=== PATIENT | female | born 1980 | race Caucasian/White ===

== ENCOUNTER 2018-12-26 16:18 | Emergency (ER) | payer OTHER ==
[~2018-12-26] VITALS: Ht 157.5 cm; Wt 49.9 kg
--- OUTSIDE RECORDS SUMMARY | 2018-12-26 16:28 | XMS REPORT | Continuity of Care Document ---
Author Organization Unknown Address Unknown Allergies There is no data. Medications There is no data. Problems There is no data. Procedures There is no data. Results Test Result Range FSH, SERUM - 12/10/18 16:00 FSH <0.7 mIU/mL NRG LH - 12/10/18 16:00 LH <0.2 mIU/mL NRG Encounters ACCT No. Visit Date/Time Discharge Status Pt. Type Provider Facility Loc./Unit Complaint [id number] 12/10/2018 09:30:00 12/10/2018 23:59:59 [facility] [id number] 12/10/2018 09:30:00 Document Registration
[2018-12-26] MEDS ORDERED: NS IV 1000 ML 1,000 ML IV STA (16:59)
[2018-12-26] MEDS ORDERED: METOCLOPRAMIDE INJ 10 MG/2 ML (REGLAN) IVP ONE (17:00)
[2018-12-26] MEDS ORDERED: diphenhydrAMINE 50 MG/ML INJ (BENADRYL) IVP ONE (17:00)
--- NOTE | 2018-12-26 17:08 | ED Headache ---
General Chief Complaint: Head/Cervical Problems Stated Complaint: PAIN BEHIND RIGHT EAR, VOMITING, MIGRAINE Nursing Triage Note: Has had a worsening headache since monday. Burning and pain starts in the occiptal region on the right side and wraps around to R forehead. Has had headaches like this before..was diagnosed with mastoiditis and possible mass behind R ear a year ago. States she has seizures when the pain gets too bad but is not on any seizure prevention. Went to urgent care this morning and received prednisone, toradol, and amoxicillin. Nursing Sepsis Screen: No Definite Risk Source: patient, spouse History of Present Illness Date Seen by Provider: Dec 26, 2018 Time Seen by Provider: 16:48 This is a 38-year-old female who complains of a right sided headache that has been worse over the last week but has been fluctuating in severity for the last year and a half. She was told at one point that she had mastoiditis, of note she was never admitted for treatment of mastoiditis, she was treated with oral antibiotics. She was admitted with her headache one time, that was the time that she had a seizure with a headache however she states that she's had seizures for her whole life. She takes no medications chronically. She saw her primary care doctor couple of months ago for the same headache and was told that she needed a CT of her head but that insurance would not pay for it so she has not had a CT since that time. She is not having fever or chills. She does not have focal visual change or focal weakness, numbness, or tingling. She did vomit today, of nausea with her headaches although she will not necessarily vomit. The headache radiates from the back of the right-sided scalp to the front of the right side of the scalp and radiates to the ipsilateral ear. No hearing loss. Allergies and Home Medications Allergies Coded Allergies: No Known Drug Allergies (Unverified , 12/26/18) Patient Home Medication List Home Medication List Reviewed: Yes Review of Systems Review of Systems Constitutional: no symptoms reported Eyes: Photophobia Ears, Nose, Mouth, Throat: see HPI Respiratory: no symptoms reported Cardiovascular: no symptoms reported Gastrointestinal: see HPI Genitourinary: no symptoms reported Musculoskeletal: no symptoms reported Skin: no symptoms reported Psychiatric/Neurological: See HPI Past Heulkua-Xunqlf-Mbgwfy Hx Past Med/Social Hx: Reviewed Nursing Past Med/Soc Hx Patient Social History Alcohol Use: Occasionally Uses Recreational Drug Use: No Smoking Status: Never a Smoker 2nd Hand Smoke Exposure: No Recent Foreign Travel: No Contact w/Someone Who Travel: No Recent Infectious Disease Expo: No Recent Hopitalizations: No Physical Abuse: No Sexual Abuse: No Mistreated: No Fear: No Seasonal Allergies Seasonal Allergies: No Past Medical History Surgeries: Yes (achiles tendon; ) Hysterectomy Respiratory: No Cardiac: No Neurological: Yes Seizure Disorder Genitourinary: No Gastrointestinal: No Musculoskeletal: No Endocrine: No HEENT: No Cancer: No Psychosocial: No Integumentary: No Blood Disorders: No Physical Exam Vital Signs Vital Signs - First Documented 12/26/18 16:20 Temp 98.6 Pulse 68 Resp 18 B/P (MAP) 108/55 (72) Pulse Ox 100 Capillary Refill : Less Than 3 Seconds Height, Weight, BMI Height: 5'2.00" Weight: 110lbs. oz. 49.007233rf; BMI Method:Stated General Appearance: no apparent distress (lying in a dark room with her eyes covered initially) HEENT: other (there is no focal tenderness over the mastoid, no erythema, the TMs bilaterally are normal, the auditory canals are normal bilaterally) Neck: full range of motion, supple Cardiovascular: normal peripheral pulses, regular rate, rhythm Respiratory: lungs clear Gastrointestinal: non tender, soft Crainal Nerves: normal hearing, normal speech, PERRL; No abnormal eye position , No abnormal gag reflex, No abnormal speech, No facial asymmetry, No facial paresthesias, No hearing deficit (R), No hearing deficit (L), No tongue deviation to R, No tongue deviation to L Coordination/Gait: normal finger to nose Motor/Sensory: no motor deficit, no sensory deficit Skin: warm/dry Progress/Results/Core Measures Results/Orders Lab Results Laboratory Tests Test 12/26/18 17:18 Range/Units White Blood Count 6.5 4.3-11.0 10^3/uL Red Blood Count 4.08 L 4.35-5.85 10^6/uL Hemoglobin 13.5 11.5-16.0 G/DL Hematocrit 40 35-52 % Mean Corpuscular Volume 97 80-99 FL Mean Corpuscular Hemoglobin 33 25-34 PG Mean Corpuscular Hemoglobin Concent 34 32-36 G/DL Red Cell Distribution Width 12.4 10.0-14.5 % Platelet Count 387 130-400 10^3/uL Mean Platelet Volume 9.2 7.4-10.4 FL Neutrophils (%) (Auto) 55 42-75 % Lymphocytes (%) (Auto) 34 12-44 % Monocytes (%) (Auto) 9 0-12 % Eosinophils (%) (Auto) 2 0-10 % Basophils (%) (Auto) 1 0-10 % Neutrophils # (Auto) 3.6 1.8-7.8 X 10^3 Lymphocytes # (Auto) 2.2 1.0-4.0 X 10^3 Monocytes # (Auto) 0.6 0.0-1.0 X 10^3 Eosinophils # (Auto) 0.1 0.0-0.3 10^3/uL Basophils # (Auto) 0.1 0.0-0.1 10^3/uL Sodium Level 141 135-145 MMOL/L Potassium Level 4.1 3.6-5.0 MMOL/L Chloride Level 105 98-107 MMOL/L Carbon Dioxide Level 24 21-32 MMOL/L Anion Gap 12 5-14 MMOL/L Blood Urea Nitrogen 10 7-18 MG/DL Creatinine 0.88 0.60-1.30 MG/DL Estimat Glomerular Filtration Rate > 60 BUN/Creatinine Ratio 11 Glucose Level 93 70-105 MG/DL Calcium Level 9.3 8.5-10.1 MG/DL Serum Test, Qualitative NEGATIVE NEGATIVE My Orders Orders - NAZARIO JULIAN DO Ct Head Wo (12/26/18 16:59) Hcg,Qualitative Serum (12/26/18 16:59) Cbc With Automated Diff (12/26/18 16:59) Basic Metabolic Panel (12/26/18 16:59) Metoclopramide Injection (Reglan Injecti (12/26/18 17:00) Diphenhydramine Injection (Benadryl Inje (12/26/18 17:00) Ns Iv 1000 Ml (Sodium Chloride 0.9%) (12/26/18 16:59) Medications Given in ED Current Medications Medications Dose Ordered Sig/Joel Route Start Time Stop Time Status Last Admin Dose Admin Diphenhydramine HCl 25 mg ONCE ONCE IVP 12/26/18 17:00 12/26/18 17:02 DC 4/24/19 17:25 25 MG Metoclopramide HCl 10 mg ONCE ONCE IVP 12/26/18 17:00 12/26/18 17:02 DC 12/26/18 17:25 10 MG Vital Signs/I&O 12/26/18 16:20 Temp 98.6 Pulse 68 Resp 18 B/P (MAP) 108/55 (72) Pulse Ox 100 Blood Pressure Mean: 72 Progress Progress Note #1: Progress Note This is a 38-year-old female who claims to have had a right-sided headache for a year and a half that fluctuates in intensity. This is not the worst that it is ever been, she was having trouble following up with her primary care physician because she was told that he was unable to obtain a CT for her and they felt that there was not going to be benefit going back to see him again. The story is unusual because patient states she's had seizures for her whole life but she is not taking any antiepileptic medications. She was told that she had mastoiditis but she was never admitted for IV antibiotics. She has no evidence of mastoiditis at this time. She is neurologically intact. No fever or chills or neck stiffness. Her headache did not suddenly get worse. I have asked for an IV to be placed, we will treat with Reglan, Benadryl, fluids. We will check basic labs and we will obtain a head CT today, less out of a concern for mastoiditis then another entity causing a chronic headache such as a tumor. Ultimately I feel patient's disposition will be to home, with PCP and neurology follow-up. Progress Note #2: Progress Note The again is unlikely the patient is suffering from acute mastoiditis, there is minimal mucosal inflammation on CT. There is no tenderness on palpation or other inflammatory change on exam, she was prescribed oral antibiotics, I will refer her to ENT. I also recommended to patient and her significant other that they follow-up with neurology as she has been having headaches for a year and a half. I will prescribe Fioricet that they can try over the next few days. She will not take this with any other sedating medications or alcohol. She will avoid abrupt discontinuation of this medication to avoid caffeine withdrawal headache. She will return immediately or call 911 for any new or worsening symptoms. She feels much better with Reglan and Benadryl and would like to go home. Departure Impression Primary Impression: Headache Disposition: 01 HOME, SELF-CARE Condition: Stable Departure-Patient Inst. Referrals: DIANA WALLACE MD (PCP) Primary Care Physician MJ ZHU MD Patient Instructions: Headache, Adult (DC), Mastoiditis NAZARIO JULIAN DO Dec 26, 2018 17:08
[2018-12-26 17:22] LABS: HEMATOCRIT 40 % (35-52); HEMOGLOBIN 13.5 G/DL (11.5-16.0); MEAN CORPUSCULAR HEMOGLOBIN 33 PG (25-34); MEAN CORPUSCULAR HGB CONC 34 G/DL (32-36); MEAN CORPUSCULAR VOLUME 97 FL (80-99); RED CELL DISTRIBUTION WIDTH 12.4 % (10.0-14.5); WHITE BLOOD COUNT 6.5 10^3/uL (4.3-11.0)
[2018-12-26 17:23] LABS: BASOPHILS # (AUTO) 0.1 10^3/uL (0.0-0.1); BASOPHILS % (AUTO) 1 % (0-10); EOSINOPHILS # (AUTO) 0.1 10^3/uL (0.0-0.3); EOSINOPHILS % (AUTO) 2 % (0-10); LYMPHOCYTES # (AUTO) 2.2 X 10^3 (1.0-4.0); LYMPHOCYTES % (AUTO) 34 % (12-44); MEAN PLATELET VOLUME 9.2 FL (7.4-10.4); MONOCYTES # (AUTO) 0.6 X 10^3 (0.0-1.0); MONOCYTES % (AUTO) 9 % (0-12); NEUTROPHILS # (AUTO) 3.6 X 10^3 (1.8-7.8); NEUTROPHILS % (AUTO) 55 % (42-75); PLATELET COUNT 387 10^3/uL (130-400)
--- NOTE | 2018-12-26 17:31 | Diagnostic Imaging Report ---
PROCEDURE: CT head without contrast. TECHNIQUE: Multiple contiguous axial images were obtained through the brain without the use of intravenous contrast. Auto Exposure Controls were utilized during the CT exam to meet ALARA standards for radiation dose reduction. INDICATION: Worsening headaches. Occipital pain. FINDINGS: There are no CT findings of an acute intracranial abnormality. There is no evidence of intracranial hemorrhage. There is no intracranial mass effect or shift. There is no hydrocephalus. There is no abnormal extra-axial fluid collection. The basilar cisterns appear patent. The posterior fossa demonstrates no acute process. The mastoid air cells demonstrate some minimal opacification inferiorly on the right and are otherwise clear. The left mastoids are clear. The middle ears appear clear. Visualized paranasal sinuses are unremarkable. The calvarium is unremarkable. Visualized soft tissues demonstrate no focal abnormality. IMPRESSION: 1. No CT evidence of an acute intracranial abnormality. 2. Minimal opacification of the most posterior and inferior right-sided mastoid air cells without evidence of bone destruction or coalescence. Left mastoids are clear. Middle ear is clear. Dictated by: Dictated on workstation # [id number]
[2018-12-26 17:41] LABS: BUN/CREATININE RATIO 11; CALCIUM 9.3 MG/DL (8.5-10.1); CARBON DIOXIDE 24 MMOL/L (21-32); CHLORIDE 105 MMOL/L (98-107); CREATININE SERUM 0.88 MG/DL (0.60-1.30); GFR ESTIMATED > 60; GLUCOSE 93 MG/DL (70-105); POTASSIUM 4.1 MMOL/L (3.6-5.0); SODIUM 141 MMOL/L (135-145)
[2018-12-26 18:31] VITALS: BP 108/79
== END 2018-12-26 18:33 | disposition home or self-care (01) ==
LOC: ER FS 16:20
DX: R51 Headache (principal); Z90.710 Acquired absence of both cervix and uterus; Z86.69 Personal history of other diseases of the nervous system and sense organs
CPT/HCPCS: 36415; 70450; 80048; 84703; 85025; 96374; 96375

== ENCOUNTER 2019-04-11 15:00 | Emergency (ER) | payer OTHER ==
[~2019-04-11] VITALS: Ht 157.5 cm; Wt 48.1 kg
[2019-04-11] MEDS ORDERED: diphenhydrAMINE 50 MG/ML INJ (BENADRYL) IVP STA (15:18)
[2019-04-11] MEDS ORDERED: KETOROLAC 30 MG/ML VIAL IVP STA (15:18)
[2019-04-11] MEDS ORDERED: ONDANSETRON 4 MG/2 ML (SDV) Z0FRAN IVP STA (15:18)
[2019-04-11] MEDS ORDERED: NS IV 1000 ML 1,000 ML IV STA (15:18)
[2019-04-11 15:27] LABS: HEMATOCRIT 43 % (35-52); MEAN CORPUSCULAR HEMOGLOBIN 32 PG (25-34); MEAN CORPUSCULAR VOLUME 97 FL (80-99); WHITE BLOOD COUNT 7.4 10^3/uL (4.3-11.0)
[2019-04-11 15:28] LABS: BASOPHILS # (AUTO) 0.1 10^3/uL (0.0-0.1); BASOPHILS % (AUTO) 1 % (0-10); EOSINOPHILS # (AUTO) 0.1 10^3/uL (0.0-0.3); EOSINOPHILS % (AUTO) 1 % (0-10); LYMPHOCYTES # (AUTO) 2.2 X 10^3 (1.0-4.0); LYMPHOCYTES % (AUTO) 29 % (12-44); MEAN CORPUSCULAR HGB CONC 33 G/DL (32-36); MEAN PLATELET VOLUME 9.4 FL (7.4-10.4); MONOCYTES # (AUTO) 0.4 X 10^3 (0.0-1.0); MONOCYTES % (AUTO) 5 % (0-12); NEUTROPHILS # (AUTO) 4.7 X 10^3 (1.8-7.8); NEUTROPHILS % (AUTO) 64 % (42-75); PLATELET COUNT 416 10^3/uL (130-400); RED CELL DISTRIBUTION WIDTH 12.3 % (10.0-14.5)
[2019-04-11 15:47] LABS: BUN/CREATININE RATIO 12; CARBON DIOXIDE 24 MMOL/L (21-32); CHLORIDE 101 MMOL/L (98-107); CREATININE SERUM 0.67 MG/DL (0.60-1.30); GFR ESTIMATED > 60; GLUCOSE 97 MG/DL (70-105); POTASSIUM 3.6 MMOL/L (3.6-5.0); SODIUM 140 MMOL/L (135-145)
--- NOTE | 2019-04-11 15:47 | ED General ---
General Chief Complaint: Neurological Problems Stated Complaint: TOVA, KAYLYN Source of Information: Patient, Spouse History of Present Illness Date Seen by Provider: Apr 11, 2019 Time Seen by Provider: 15:16 Initial Comments 39-year-old female presenting with complaints of burning in the back of her head and to the right side of her ear. She also has blurry vision. She states this red around 10 AM. She's had previous symptoms like this in the past. She also states that she's had seizures with similar symptoms. She states it's been approximately 2 years since her last seizure. She's had headaches like this re gularly. She states usually she just as to when the headache goes away. She does not take any medicines for this or for seizures. She's had seizures on and off since she was a young girl. She has not seen a neurologist for her. She states that she was seen earlier this year for similar symptoms and told that she had possible mild mastoiditis. She's been seen through the more and told that she had some issue with her pituitary gland. She has not followed up about that either. Allergies and Home Medications Allergies Coded Allergies: No Known Drug Allergies (Unverified , 12/26/18) Patient Home Medication List Home Medication List Reviewed: Yes Review of Systems Review of Systems Constitutional: No chills; dizziness; No fever EENTM: ear pain (right side), blurred vision; No ear discharge, No dental problems, No hoarseness, No mouth pain, No epistaxis, No nose congestion Respiratory: No cough, No short of breath Cardiovascular: No chest pain Gastrointestinal: no symptoms reported Genitourinary: no symptoms reported Musculoskeletal: neck pain (primarily on the right side) Skin: other (burning sensation to occiput of head) Psychiatric/Neurological: Anxiety Past Bhimrce-Tfuxnb-Jhkxuo Hx Past Med/Social Hx: Reviewed Nursing Past Med/Soc Hx Patient Social History 2nd Hand Smoke Exposure: No Recent Foreign Travel: No Contact w/Someone Who Travel: No Recent Hopitalizations: No Seasonal Allergies Seasonal Allergies: No Past Medical History Surgeries: Yes (achiles tendon; ) Hysterectomy Respiratory: No Cardiac: No Neurological: Yes Seizure Disorder Genitourinary: No Gastrointestinal: No Musculoskeletal: No Endocrine: No HEENT: No Cancer: No Psychosocial: No Integumentary: No Blood Disorders: No Physical Exam Vital Signs Vital Signs - First Documented 04/11/19 15:00 Temp 98.4 Pulse 63 Resp 18 B/P (MAP) 119/73 (88) Pulse Ox 100 O2 Delivery Room Air Capillary Refill : Height, Weight, BMI Height: 5'2.00" Weight: 110lbs. oz. 49.392132qy; BMI Method:Stated General Appearance: No Apparent Distress, WD/WN HEENT: PERRL/EOMI, TMs Normal, Normal ENT Inspection, Pharynx Normal Neck: Full Range of Motion, Normal Inspection, Supple, Tender Lateral (right side) Respiratory: Chest Non Tender, Lungs Clear, Normal Breath Sounds, No Accessory Muscle Use, No Respiratory Distress Cardiovascular: Regular Rate, Rhythm, Normal Peripheral Pulses Gastrointestinal: Normal Bowel Sounds, No Pulsatile Mass, Non Tender, Soft Extremity: Normal Capillary Refill, Normal Inspection, Normal Range of Motion, Non Tender, No Calf Tenderness, No Pedal Edema Neurologic/Psychiatric: Alert, Oriented x3, No Motor/Sensory Deficits, Normal Mood/Affect, senior underwriting assistant II-XII Norm as Tested Skin: Normal Color, Warm/Dry Lymphatic: No Adenopathy Progress/Results/Core Measures Suspected Sepsis SIRS Temperature: Pulse: Respiratory Rate: Laboratory Tests 04/11/19 15:14: White Blood Count 7.4 Blood Pressure / Mean: Laboratory Tests 04/11/19 15:14: Creatinine 0.67, Platelet Count 416H, Total Bilirubin 0.4 Results/Orders Lab Results Laboratory Tests Test 04/11/19 15:14 04/11/19 16:14 Range/Units White Blood Count 7.4 4.3-11.0 10^3/uL Red Blood Count 4.39 4.35-5.85 10^6/uL Hemoglobin 14.0 11.5-16.0 G/DL Hematocrit 43 35-52 % Mean Corpuscular Volume 97 80-99 FL Mean Corpuscular Hemoglobin 32 25-34 PG Mean Corpuscular Hemoglobin Concent 33 32-36 G/DL Red Cell Distribution Width 12.3 10.0-14.5 % Platelet Count 416 H 130-400 10^3/uL Mean Platelet Volume 9.4 7.4-10.4 FL Neutrophils (%) (Auto) 64 42-75 % Lymphocytes (%) (Auto) 29 12-44 % Monocytes (%) (Auto) 5 0-12 % Eosinophils (%) (Auto) 1 0-10 % Basophils (%) (Auto) 1 0-10 % Neutrophils # (Auto) 4.7 1.8-7.8 X 10^3 Lymphocytes # (Auto) 2.2 1.0-4.0 X 10^3 Monocytes # (Auto) 0.4 0.0-1.0 X 10^3 Eosinophils # (Auto) 0.1 0.0-0.3 10^3/uL Basophils # (Auto) 0.1 0.0-0.1 10^3/uL Sodium Level 140 135-145 MMOL/L Potassium Level 3.6 3.6-5.0 MMOL/L Chloride Level 101 98-107 MMOL/L Carbon Dioxide Level 24 21-32 MMOL/L Anion Gap 15 H 5-14 MMOL/L Blood Urea Nitrogen 8 7-18 MG/DL Creatinine 0.67 0.60-1.30 MG/DL Estimat Glomerular Filtration Rate > 60 BUN/Creatinine Ratio 12 Glucose Level 97 70-105 MG/DL Calcium Level 9.9 8.5-10.1 MG/DL Corrected Calcium 8.5-10.1 MG/DL Total Bilirubin 0.4 0.1-1.0 MG/DL Aspartate Amino Transf (AST/SGOT) 22 5-34 U/L Alanine Aminotransferase (ALT/SGPT) 21 0-55 U/L Alkaline Phosphatase 64 40-136 U/L Total Protein 8.8 H 6.4-8.2 GM/DL Albumin 5.4 H 3.2-4.5 GM/DL Salicylates Level < 0.3 L 5.0-20.0 MG/DL Acetaminophen Level < 10 L 10-30 UG/ML Serum Alcohol < 10 <10 MG/DL Urine Color YELLOW Urine Clarity CLEAR Urine pH 7.5 5-9 Urine Specific [place] 1.010 L 1.016-1.022 Urine Protein NEGATIVE NEGATIVE Urine Glucose (UA) NEGATIVE NEGATIVE Urine Ketones NEGATIVE NEGATIVE Urine Nitrite NEGATIVE NEGATIVE Urine Bilirubin NEGATIVE NEGATIVE Urine Urobilinogen 0.2 NORMAL MG/DL Urine Leukocyte Esterase NEGATIVE NEGATIVE Urine RBC (Auto) NEGATIVE NEGATIVE Urine RBC NONE /HPF Urine WBC NONE /HPF Urine Squamous Epithelial Cells 0-2 /HPF Urine Crystals NONE /LPF Urine Bacteria TRACE /HPF Urine Casts NONE /LPF Urine Mucus NEGATIVE /LPF Urine Culture Indicated NO Urine Opiates Screen NEGATIVE NEGATIVE Urine Oxycodone Screen NEGATIVE NEGATIVE Urine Methadone Screen NEGATIVE NEGATIVE Urine Propoxyphene Screen NEGATIVE NEGATIVE Urine Barbiturates Screen NEGATIVE NEGATIVE Ur Tricyclic Antidepressants Screen NEGATIVE NEGATIVE Urine Phencyclidine Screen NEGATIVE NEGATIVE Urine Amphetamines Screen NEGATIVE NEGATIVE Urine Methamphetamines Screen NEGATIVE NEGATIVE Urine Benzodiazepines Screen NEGATIVE NEGATIVE Urine Cocaine Screen NEGATIVE NEGATIVE Urine Cannabinoids Screen POSITIVE H NEGATIVE My Orders Orders - FABY HURTADO MD Ua Culture If Indicated (04/11/19 15:18) Cbc With Automated Diff (04/11/19 15:18) Comprehensive Metabolic Panel (04/11/19 15:18) Alcohol (04/11/19 15:18) Drug Screen Stat (Urine) (04/11/19 15:18) Acetaminophen (04/11/19 15:18) Salicylate (04/11/19 15:18) Ed Iv/Invasive Line Start (04/11/19 15:18) Ct Head Wo (04/11/19 15:18) Ns Iv 1000 Ml (Sodium Chloride 0.9%) (04/11/19 15:18) Ketorolac Injection (Toradol Injection) (04/11/19 15:18) Diphenhydramine Injection (Benadryl Inje (04/11/19 15:18) Ondansetron Injection (Zofran Injectio (04/11/19 15:18) Vital Signs/I&O 04/11/19 04/11/19 15:00 17:30 Temp 98.4 98.4 Pulse 63 58 Resp 18 18 B/P (MAP) 119/73 (88) 112/71 (85) Pulse Ox 100 100 O2 Delivery Room Air Room Air Capillary Refill : Progress Note #1: Progress Note With her having headache and feeling like she had when she has had seizures in the past will check repeat CT head and basic labs. Give IVF with Toradol, benadryl and Zofran as cocktail of medicines that usually would help for headaches in the ED. Provided her electrolytes look ok and she has no acute significant abnormality on her labs will plan on discharge to home. Progress Note #2: Progress Note Labs all appear stable a nd no acute significant abnormality. Her Urine and UDS are clear of acute findings as well. CT head is stable from prior imaging in December with unchanged consolidation of the right mastoid sinuses. On recheck of the pt she has improved symptoms so will d/c to home and have her check back with clinic for continued symptoms. Advised to check with neurology or ENT about continued symptoms Diagnostic Imaging Diagonstic Imaging: CT Plain Films/CT/US/NM/MRI: head Comments NAME: RICHA TORREZ [facility] REC#: [id number] PT STATUS: REG ER : 1980 PHYSICIAN: FABY HURTADO MD ADMIT DATE: 04/11/19/ER FS Draft Date of Exam:04/11/19 CT HEAD WO CLINICAL INDICATION: Patient with weakness and shaky which started this morning. No known injury. EXAM: Axial CT scan of the brain performed without IV contrast. Auto Exposure Controls were utilized during the CT exam to meet ALARA standards for radiation dose reduction. COMPARISON: Head CT dated 12/26/2018. FINDINGS: There is no evidence of acute cerebral infarct, intracranial hemorrhage, or gross mass effect. The brain parenchymal volume appears appropriate for patient's age. There is normal colby-white matter distinction. There is no significant midline shift or herniation. There is no evidence of hydrocephalus. The basal cisterns are unremarkable. The skull, extracranial soft tissue, and orbits are unremarkable. The paranasal sinuses are unremarkable. Stable chronic small amount of consolidation involving the right mastoid. IMPRESSION: Stable small amount of consolidation involving the right mastoid process. Otherwise, unremarkable CT scan of the brain. 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 Decision time for Depature: 17:23 Referrals: DIANA WALLACE MD (PCP) Primary Care Physician Patient Instructions: Headache, Adult (DC), Mastoiditis (DC) Add. Discharge Instructions: Rest in a cool dark room. Drink plenty of water and stay well hydrated. Follow up with ENT about the chronic fluid in your mastoid area on the right side. Check with Neurology about your chronic headaches and the burning sensation in your scalp as well as the seizures you have had in the past. All discharge instructions reviewed with patient and/or family. Voiced understanding. Work/School Note: Work Release Form Date Seen in the Emergency Department: Apr 11, 2019 Return to Work: Apr 12, 2019 Restrictions: No Restrictions FABY HURTADO MD Apr 11, 2019 15:47
[2019-04-11 15:48] LABS: ALANINE AMINOTRANSFERASE 21 U/L (0-55); ALBUMIN 5.4 GM/DL (3.2-4.5); ALKALINE PHOSPHATASE 64 U/L (40-136); BILIRUBIN,TOTAL 0.4 MG/DL (0.1-1.0); CALCIUM 9.9 MG/DL (8.5-10.1); TOTAL PROTEIN 8.8 GM/DL (6.4-8.2)
[2019-04-11 15:49] LABS: ACETAMINOPHEN < 10 UG/ML (10-30); SALICYLATE < 0.3 MG/DL (5.0-20.0)
[2019-04-11 16:34] LABS: BACTERIA,URINE TRACE /HPF; BILIRUBIN,URINE NEGATIVE (NEGATIVE); CLARITY,URINE CLEAR; COLOR,URINE YELLOW; GLUCOSE, URINE (UA) NEGATIVE (NEGATIVE); KETONES,URINE NEGATIVE (NEGATIVE); LEUKOCYTE ESTERASE ,URINE NEGATIVE (NEGATIVE); NITRITE,URINE NEGATIVE (NEGATIVE); PH,URINE 7.5 (5-9); PROTEIN,URINE NEGATIVE (NEGATIVE); SQUAMOUS EPITHELIAL CELL,UR 0-2 /HPF; UROBILINOGEN,URINE 0.2 MG/DL (NORMAL)
[2019-04-11 16:39] LABS: AMPHETAMINE SCREEN, URINE NEGATIVE (NEGATIVE); BARBITURATE SCREEN URINE NEGATIVE (NEGATIVE); BENZODIAZEPINES SCREEN URINE NEGATIVE (NEGATIVE); CANNABINOID SCREEN, URINE POSITIVE (NEGATIVE); COCAINE SCREEN URINE NEGATIVE (NEGATIVE); METHADONE STAT NEGATIVE (NEGATIVE); METHAMPHETAMINE SCREEN URINE S NEGATIVE (NEGATIVE); OPIATE SCREEN URINE NEGATIVE (NEGATIVE); OXYCODONE STAT NEGATIVE (NEGATIVE); PROPOXYPHENE STAT NEGATIVE (NEGATIVE); TRICYCLIC ANTIDEPRESSANTS SCRE NEGATIVE (NEGATIVE)
--- NOTE | 2019-04-11 16:42 | Diagnostic Imaging Report ---
CLINICAL INDICATION: Patient with weakness and shaky which started this morning. No known injury. EXAM: Axial CT scan of the brain performed without IV contrast. Auto Exposure Controls were utilized during the CT exam to meet ALARA standards for radiation dose reduction. COMPARISON: Head CT dated 12/26/2018. FINDINGS: There is no evidence of acute cerebral infarct, intracranial hemorrhage, or gross mass effect. The brain parenchymal volume appears appropriate for patient's age. There is normal colby-white matter distinction. There is no significant midline shift or herniation. There is no evidence of hydrocephalus. The basal cisterns are unremarkable. The skull, extracranial soft tissue, and orbits are unremarkable. The paranasal sinuses are unremarkable. Stable chronic small amount of consolidation involving the right mastoid. IMPRESSION: Stable small amount of consolidation involving the right mastoid process. Otherwise, unremarkable CT scan of the brain. Dictated by: Dictated on workstation # [id number]
[2019-04-11 17:30] VITALS: BP 112/71
--- OUTSIDE RECORDS SUMMARY | 2019-04-12 00:35 | XMS REPORT | Continuity of Care Document ---
Author Organization Unknown Address Unknown Phone Unavailable Allergies Active Description Code Type Severity Reaction Onset Reported/Identified Relationship to Patient Clinical Status Yes No Known Drug Allergies [id number] Drug Allergy Unknown N/A 12/26/2018 Medications There is no data. Problems Date Dx Coded Attending Type Code Diagnosis Diagnosed By 12/26/2018 NAZARIO JULIAN DO T Ot R51 HEADACHE 12/26/2018 NAZARIO JULIAN DO T Ot Z86.69 PERSONAL HISTORY OF DIS OF THE NERVOUS S 12/26/2018 ELIEL VALLEJO NAZARIO T Ot Z90.710 ACQUIRED ABSENCE OF BOTH CERVIX AND UTER 01/01/2019 MOOSE JULIAN DOED T Ot R51 HEADACHE 01/01/2019 MOOSE JULIAN DOED T Ot Z86.69 PERSONAL HISTORY OF DIS OF THE NERVOUS S 01/01/2019 ELIEL VALLEJO NAZARIO T Ot Z90.710 ACQUIRED ABSENCE OF BOTH CERVIX AND UTER Procedures There is no data. Results Test Result Range FSH, SERUM - 12/10/18 16:00 FSH <0.7 mIU/mL NRG LH - 12/10/18 16:00 LH <0.2 mIU/mL NRG Complete blood count (CBC) with automated white blood cell (WBC) differential - 12/26/18 17:18 Blood leukocytes automated count (number/volume) 6.5 10*3/uL 4.3-11.0 Blood erythrocytes automated count (number/volume) 4.08 10*6/uL 4.35-5.85 Venous blood hemoglobin measurement (mass/volume) 13.5 g/dL 11.5-16.0 Blood hematocrit (volume fraction) 40 % 35-52 Automated erythrocyte mean corpuscular volume 97 [foz_us] 80-99 Automated erythrocyte mean corpuscular hemoglobin (mass per erythrocyte) 33 pg 25-34 Automated erythrocyte mean corpuscular hemoglobin concentration measurement (mass/volume) 34 g/dL 32-36 Automated erythrocyte distribution width ratio 12.4 % 10.0- 14.5 Automated blood platelet count (count/volume) 387 10*3/uL 130-400 Automated blood platelet mean volume measurement 9.2 [foz_us] 7.4-10.4 Automated blood neutrophils/100 leukocytes 55 % 42-75 Automated blood lymphocytes/100 leukocytes 34 % 12-44 Blood monocytes/100 leukocytes 9 % 0-12 Automated blood eosinophils/100 leukocytes 2 % 0-10 Automated blood basophils/100 leukocytes 1 % 0-10 Blood neutrophils automated count (number/volume) 3.6 10*3 1.8-7.8 Blood lymphocytes automated count (number/volume) 2.2 10*3 1.0-4.0 Blood monocytes automated count (number/volume) 0.6 10*3 0.0- 1.0 Automated eosinophil count 0.1 10*3/uL 0.0-0.3 Automated blood basophil count (count/volume) 0.1 10*3/uL 0.0-0.1 Serum or plasma choriogonadotropin ( test) detection - 12/26/18 17:18 Serum or plasma choriogonadotropin ( test) detection NEGATIVE NEGATIVE Whole blood basic metabolic panel - 12/26/18 17:18 Serum or plasma sodium measurement (moles/volume) 141 mmol/L 135-145 Serum or plasma potassium measurement (moles/volume) 4.1 mmol/L 3.6-5.0 Serum or plasma chloride measurement (moles/volume) 105 mmol/L 98-107 Carbon dioxide 24 mmol/L 21-32 Serum or plasma anion gap determination (moles/volume) 12 mmol/L 5-14 Serum or plasma urea nitrogen measurement (mass/volume) 10 mg/dL 7-18 Serum or plasma creatinine measurement (mass/volume) 0.88 mg/dL 0.60-1.30 Serum or plasma urea nitrogen/creatinine mass ratio 11 NRG Serum or plasma creatinine measurement with calculation of estimated glomerular filtration rate > NRG Serum or plasma glucose measurement (mass/volume) 93 mg/dL 70-105 Serum or plasma calcium measurement (mass/volume) 9.3 mg/dL 8.5-10.1 Complete blood count (CBC) with automated white blood cell (WBC) differential - 04/11/19 15:14 Blood leukocytes automated count (number/volume) 7.4 10*3/uL 4.3-11.0 Blood erythrocytes automated count (number/volume) 4.39 10*6/uL 4.35-5.85 Venous blood hemoglobin measurement (mass/volume) 14.0 g/dL 11.5-16.0 Blood hematocrit (volume fraction) 43 % 35-52 Automated erythrocyte mean corpuscular volume 97 [foz_us] 80-99 Automated erythrocyte mean corpuscular hemoglobin (mass per erythrocyte) 32 pg 25-34 Automated erythrocyte mean corpuscular hemoglobin concentration measurement (mass/volume) 33 g/dL 32-36 Automated erythrocyte distribution width ratio 12.3 % 10.0- 14.5 Automated blood platelet count (count/volume) 416 10*3/uL 130-400 Automated blood platelet mean volume measurement 9.4 [foz_us] 7.4-10.4 Automated blood neutrophils/100 leukocytes 64 % 42-75 Automated blood lymphocytes/100 leukocytes 29 % 12-44 Blood monocytes/100 leukocytes 5 % 0-12 Automated blood eosinophils/100 leukocytes 1 % 0-10 Automated blood basophils/100 leukocytes 1 % 0-10 Blood neutrophils automated count (number/volume) 4.7 10*3 1.8-7.8 Blood lymphocytes automated count (number/volume) 2.2 10*3 1.0-4.0 Blood monocytes automated count (number/volume) 0.4 10*3 0.0- 1.0 Automated eosinophil count 0.1 10*3/uL 0.0-0.3 Automated blood basophil count (count/volume) 0.1 10*3/uL 0.0-0.1 Comprehensive metabolic panel - 04/11/19 15:14 Serum or plasma sodium measurement (moles/volume) 140 mmol/L 135-145 Serum or plasma potassium measurement (moles/volume) 3.6 mmol/L 3.6-5.0 Serum or plasma chloride measurement (moles/volume) 101 mmol/L 98-107 Carbon dioxide 24 mmol/L 21-32 Serum or plasma anion gap determination (moles/volume) 15 mmol/L 5-14 Serum or plasma urea nitrogen measurement (mass/volume) 8 mg/dL 7-18 Serum or plasma creatinine measurement (mass/volume) 0.67 mg/dL 0.60-1.30 Serum or plasma urea nitrogen/creatinine mass ratio 12 NRG Serum or plasma creatinine measurement with calculation of estimated glomerular filtration rate > NRG Serum or plasma glucose measurement (mass/volume) 97 mg/dL 70-105 Serum or plasma calcium measurement (mass/volume) 9.9 mg/dL 8.5-10.1 Serum or plasma total bilirubin measurement (mass/volume) 0.4 mg/dL 0.1-1.0 Serum or plasma alkaline phosphatase measurement (enzymatic activity/volume) 64 U/L 40-136 Serum or plasma aspartate aminotransferase measurement (enzymatic activity/volume) 22 U/L 5-34 Serum or plasma alanine aminotransferase measurement (enzymatic activity/volume) 21 U/L 0-55 Serum or plasma protein measurement (mass/volume) 8.8 g/dL 6.4-8.2 Serum or plasma albumin measurement (mass/volume) 5.4 g/dL 3.2-4.5 Serum or plasma salicylates measurement (mass/volume) - 04/11/19 15:14 Serum or plasma salicylates measurement (mass/volume) < mg/dL 5.0-20.0 Serum or plasma acetaminophen measurement (mass/volume) - 04/11/19 15:14 Serum or plasma acetaminophen measurement (mass/volume) < ug/mL 10-30 Serum or plasma ethanol measurement (mass/volume) - 04/11/19 15:14 Serum or plasma ethanol measurement (mass/volume) < mg/dL <10 Complete urinalysis with reflex to culture - 04/11/19 16:14 Urine color determination YELLOW NRG Urine clarity determination CLEAR NRG Urine pH measurement by test strip 7.5 5-9 Specific gravity of urine by test strip 1.010 1.016-1.022 Urine protein assay by test strip, semi-quantitative NEGATIVE NEGATIVE Urine glucose detection by automated test strip NEGATIVE NEGATIVE Erythrocytes detection in urine sediment by light microscopy NEGATIVE NEGATIVE Urine ketones detection by automated test strip NEGATIVE NEGATIVE Urine nitrite detection by test strip NEGATIVE NEGATIVE Urine total bilirubin detection by test strip NEGATIVE NEGATIVE Urine urobilinogen measurement by automated test strip (mass/volume) 0.2 mg/dL NORMAL Urine leukocyte esterase detection by dipstick NEGATIVE NEGATIVE Automated urine sediment erythrocyte count by microscopy (number/high power field) NONE NRG Automated urine sediment leukocyte count by microscopy (number/high power field) NONE NRG Bacteria detection in urine sediment by light microscopy TRACE NRG Squamous epithelial cells detection in urine sediment by light microscopy 0-2 NRG Crystals detection in urine sediment by light microscopy NONE NRG Casts detection in urine sediment by light microscopy NONE NRG Mucus detection in urine sediment by light microscopy NEGATIVE NRG Complete urinalysis with reflex to culture NO NRG Urine drug screening test - 04/11/19 16:14 Urine phencyclidine detection by screening method NEGATIVE NEGATIVE Urine benzodiazepines detection by screening method NEGATIVE NEGATIVE Urine cocaine detection NEGATIVE NEGATIVE Urine amphetamines detection by screening method NEGATIVE NEGATIVE Urine methamphetamine detection by screening method NEGATIVE NEGATIVE Urine cannabinoids detection by screening method POSITIVE NEGATIVE Urine opiates detection by screening method NEGATIVE NEGATIVE Urine barbiturates detection NEGATIVE NEGATIVE Screening urine tricyclic antidepressants detection NEGATIVE NEGATIVE Urine methadone detection by screening method NEGATIVE NEGATIVE Urine oxycodone detection NEGATIVE NEGATIVE Urine propoxyphene detection NEGATIVE NEGATIVE Encounters ACCT No. Visit Date/Time Discharge Status Pt. Type Provider Facility Loc./Unit Complaint [id number] 02/13/2019 15:40:00 02/13/2019 23:59:59 [facility] Outpatient [facility] [id number] 12/10/2018 09:30:00 Document Registration [id number] 12/26/2018 16:20:00 12/26/2018 18:33:00 DIS Emergency NAZARIO JULIAN DO [facility] ER FS PAIN BEHIND RIGHT EAR, VOMITING, MIGRAINE [id number] 04/11/2019 15:28:00 Document Registration
== END 2019-04-11 17:30 | disposition home or self-care (01) ==
LOC: EDUNIT# 15:00 → ER FS 15:01
DX: H70.11 Chronic mastoiditis, right ear (principal); G40.909 Epilepsy, unspecified, not intractable, without status epilepticus; Z90.710 Acquired absence of both cervix and uterus
CPT/HCPCS: 36415; 70450; 80053; 80306; 80320; 80329; 81000; 85025

== ENCOUNTER 2019-05-09 07:06 | Emergency (ER) | payer OTHER ==
[~2019-05-09] VITALS: Ht 157.5 cm; Wt 49.9 kg
[2019-05-09] MEDS ORDERED: NS IV 1000 ML 1,000 ML IV ONE (07:27)
[2019-05-09] MEDS ORDERED: fentaNYL INJECTION 100 MCG/2 ML AMP IVP STA (07:27)
[2019-05-09] MEDS ORDERED: KETOROLAC 30 MG/ML VIAL IVP STA (07:27)
[2019-05-09] MEDS ORDERED: ONDANSETRON 4 MG/2 ML (SDV) Z0FRAN IVP ONE (07:30)
[2019-05-09 07:42] LABS: BILIRUBIN,URINE NEGATIVE (NEGATIVE); CLARITY,URINE CLEAR; COLOR,URINE YELLOW; GLUCOSE, URINE (UA) NEGATIVE (NEGATIVE); KETONES,URINE NEGATIVE (NEGATIVE); LEUKOCYTE ESTERASE ,URINE NEGATIVE (NEGATIVE); NITRITE,URINE NEGATIVE (NEGATIVE); PH,URINE 6 (5-9); PROTEIN,URINE NEGATIVE (NEGATIVE); UROBILINOGEN,URINE NORMAL (NORMAL)
[2019-05-09 07:51] LABS: BACTERIA,URINE FEW /HPF; WBC,URINE 0-2 /HPF
--- NOTE | 2019-05-09 07:52 | ED Abdominal Pain ---
General Chief Complaint: Abdominal/GI Problems Stated Complaint: LOWER R SIDE PAIN Nursing Triage Note: AMB TO ED WITH C/O R LOWER QUAD PAIN. Sepsis Screen: No Definite Risk (TWYLA JOHNSON STUDENT) History of Present Illness Date Seen by Provider: May 09, 2019 Time Seen by Provider: 07:15 Initial Comments The patient is a WD/WN woman who presents with a chief complaint of lower right side abdominal pain. She states that the pain is 7-8/10, sharp, stabbing and radiates to her back and umbilicus. She reports that she woke up about 5:45 this morning, stood up, took a few steps and began to experience severe pain. The pain is increased with movement, especially standing from a seated position. She began to experience nausea about 15 minutes after the pain started. She states that she has not previously experienced similar symptoms. She denies any vomiting, bowel or bladder problems, shortness of breath, or chest pain. She reports a history of endometriosis, mastoiditis, seizures, and a pituitary problem which she could not specify. She has had a partial hysterectomy. Ph ysical exam was remarkable for pain with palpation of the right lower abdomen, pain with percussion of the right leg, and pain with percussion of the right lower back. Timing/Duration: 1-3 Hours Severity/Quality: Severe Location: RLQ Radiation: Back, Periumbilical Activities at Onset: None Modifying Factors: Worsens With Movement, Worsens With Palpation (EDWIN JOHNSON STUDENT) Allergies and Home Medications Allergies Coded Allergies: No Known Drug Allergies (Unverified , 12/26/18) Patient Home Medication List Home Medication List Reviewed: Yes (LONG GUZMÁN MD) Review of Systems Review of Systems Constitutional: No chills, No fever EENTM: No Blurred Vision, No Double Vision Cardiovascular: Denies Chest Pain, Denies Irregular Heart Rate Gastrointestinal: Abdominal Pain; Denies Blood Streaked Stools; Nausea Genitourinary: Denies Burning, Denies Hematuria (TWYLA JOHNSON STUDENT) All Other Systems Reviewed Negative Unless Noted: Yes (LONG GUZMÁN MD) Past Wqjezpg-Rkfuvi-Lmrcsv Hx Past Med/Social Hx: Reviewed Nursing Past Med/Soc Hx (LONG GUZMÁN MD) Patient Social History Alcohol Use: Occasionally Uses Alcohol Beverage of Choice: Wine Recreational Drug Use: No Smoking Status: Former Smoker 2nd Hand Smoke Exposure: No Recent Foreign Travel: No Contact w/Someone Who Travel: No Recent Infectious Disease Expo: No Recent Hopitalizations: No (TWYLA JOHNSON STUDENT) Seasonal Allergies Seasonal Allergies: No (TWYLA JOHNSON) Past Medical History Surgeries: Yes (achiles tendon; ) Hysterectomy Respiratory: No Cardiac: No Neurological: Yes Seizure Disorder BREAKFAST SUPERVISOR History: Hysterectomy Genitourinary: No Gastrointestinal: No Musculoskeletal: No Endocrine: No HEENT: No Cancer: No Psychosocial: No Integumentary: No Blood Disorders: No (TWYLA JOHNSON STUDENT) Family Medical History Reviewed Nursing Family Hx (LONG GUZMÁN MD) No Pertinent Family Hx (LONG GUZMÁN MD) Physical Exam Vital Signs Vital Signs - First Documented 05/09/19 07:09 Temp 96.8 Pulse 50 Resp 18 B/P (MAP) 117/83 (94) Pulse Ox 100 O2 Delivery Room Air (LONG GUZMÁN MD) Vital Signs Capillary Refill : Less Than 3 Seconds (TWYLA JOHNSON STUDENT) Height/Weight/BMI Height: 5'2.00" Weight: 110lbs. oz. [id number]; BMI Method:Stated General Appearance: WD/WN, mild distress Respiratory: chest non-tender, lungs clear, normal breath sounds Cardiovascular: regular rate, rhythm, no edema, no murmur Gastrointestinal: normal bowel sounds, soft, tenderness Back: CVA tenderness (R) Neurologic/Psychiatric: alert, normal mood/affect, oriented x 3 Skin: normal color, warm/dry (TWYLA JOHNSON Surf Air STUDENT) General Appearance: WD/WN, mild distress Neck: full range of motion, supple Respiratory: lungs clear, normal breath sounds Cardiovascular: regular rate, rhythm, no edema Gastrointestinal: normal bowel sounds, soft, tenderness Back: no vertebral tenderness, CVA tenderness (R) Neurologic/Psychiatric: alert, oriented x 3 Skin: normal color, warm/dry (LONG GUZMÁN MD) Progress/Results/Core Measures Results/Orders Lab Results Laboratory Tests Test 05/09/19 07:27 05/09/19 07:49 Range/Units Urine Color YELLOW Urine Clarity CLEAR Urine pH 6 5-9 Urine Specific [place] 1.015 L 1.016-1.022 Urine Protein NEGATIVE NEGATIVE Urine Glucose (UA) NEGATIVE NEGATIVE Urine Ketones NEGATIVE NEGATIVE Urine Nitrite NEGATIVE NEGATIVE Urine Bilirubin NEGATIVE NEGATIVE Urine Urobilinogen NORMAL NORMAL MG/DL Urine Leukocyte Esterase NEGATIVE NEGATIVE Urine RBC (Auto) NEGATIVE NEGATIVE Urine RBC NONE /HPF Urine WBC 0-2 /HPF Urine Squamous Epithelial Cells 10-25 H /HPF Urine Crystals NONE /LPF Urine Bacteria FEW H /HPF Urine Casts NONE /LPF Urine Mucus SMALL H /LPF Urine Culture Indicated NO White Blood Count 5.0 4.3-11.0 10^3/uL Red Blood Count 3.89 L 4.35-5.85 10^6/uL Hemoglobin 12.7 11.5-16.0 G/DL Hematocrit 38 35-52 % Mean Corpuscular Volume 96 80-99 FL Mean Corpuscular Hemoglobin 33 25-34 PG Mean Corpuscular Hemoglobin Concent 34 32-36 G/DL Red Cell Distribution Width 12.3 10.0-14.5 % Platelet Count 325 130-400 10^3/uL Mean Platelet Volume 9.6 7.4-10.4 FL Neutrophils (%) (Auto) 55 42-75 % Lymphocytes (%) (Auto) 34 12-44 % Monocytes (%) (Auto) 9 0-12 % Eosinophils (%) (Auto) 2 0-10 % Basophils (%) (Auto) 0 0-10 % Neutrophils # (Auto) 2.7 1.8-7.8 X 10^3 Lymphocytes # (Auto) 1.7 1.0-4.0 X 10^3 Monocytes # (Auto) 0.4 0.0-1.0 X 10^3 Eosinophils # (Auto) 0.1 0.0-0.3 10^3/uL Basophils # (Auto) 0.0 0.0-0.1 10^3/uL Sodium Level 140 135-145 MMOL/L Potassium Level 3.7 3.6-5.0 MMOL/L Chloride Level 108 H 98-107 MMOL/L Carbon Dioxide Level 23 21-32 MMOL/L Anion Gap 9 5-14 MMOL/L Blood Urea Nitrogen 10 7-18 MG/DL Creatinine 0.69 0.60-1.30 MG/DL Estimat Glomerular Filtration Rate > 60 BUN/Creatinine Ratio 14 Glucose Level 80 70-105 MG/DL Calcium Level 8.9 8.5-10.1 MG/DL Corrected Calcium 8.7 8.5-10.1 MG/DL Total Bilirubin 0.8 0.1-1.0 MG/DL Aspartate Amino Transf (AST/SGOT) 20 5-34 U/L Alanine Aminotransferase (ALT/SGPT) 20 0-55 U/L Alkaline Phosphatase 48 40-136 U/L C-Reactive Protein High Sensitivity 0.17 0.00-0.50 MG/DL Total Protein 6.8 6.4-8.2 GM/DL Albumin 4.3 3.2-4.5 GM/DL (LONG GUZMÁN MD) My Orders Orders - LONG GUZMÁN MD Ed Iv/Invasive Line Start (05/09/19 07:27) Ns Iv 1000 Ml (Sodium Chloride 0.9%) (05/09/19 07:27) Cbc With Automated Diff (05/09/19 07:27) Comprehensive Metabolic Panel (05/09/19 07:27) Hs C Reactive Protein (05/09/19 07:27) Ua Culture If Indicated (05/09/19 07:27) Ondansetron Injection (Zofran Injectio (05/09/19 07:30) Fentanyl Injection (Sublimaze Injection (05/09/19 07:27) Ketorolac Injection (Toradol Injection) (05/09/19 07:27) Ct Abd/Pelv W (Appendicitis) (05/09/19 08:05) Iohexol Injection (Omnipaque 350 Mg/Ml 1 (05/09/19 08:30) Received Contrast (Hold Metformin- Contr (05/09/19 08:30) Ns (Ivpb) (Sodium Chloride 0.9% Ivpb Bag (05/09/19 08:30) (LONG GUZMÁN MD) Medications Given in ED Current Medications Medications Dose Ordered Sig/Joel Route Start Time Stop Time Status Last Admin Dose Admin Iohexol 100 ml ONCE ONCE IV 05/09/19 08:30 05/09/19 08:31 DC 05/09/19 08:37 66 ML Ondansetron HCl 4 mg ONCE ONCE IVP 05/09/19 07:30 05/09/19 07:32 DC 05/09/19 07:43 4 MG Sodium Chloride 100 ml ONCE ONCE IV 05/09/19 08:30 05/09/19 08:31 DC 05/09/19 08:37 80 ML Sodium Chloride 1,000 ml @ 0 mls/hr Q0M ONCE IV 05/09/19 07:27 05/09/19 07:32 DC 05/09/19 07:46 1,000 MLS/HR (LONG GUZMÁN MD) Vital Signs/I&O 05/09/19 07:09 Temp 96.8 Pulse 50 Resp 18 B/P (MAP) 117/83 (94) Pulse Ox 100 O2 Delivery Room Air (LONG GUZMÁN MD) Blood Pressure Mean: 94 Progress Progress Note : Time: 07:45 Progress Note Patient is resting in room with mild discomfort. Will administer zofran and fentanyl for nausea and pain. Urinalysis for evaluation of nephrolithiasis vs. appendicitis. (TWYLA JOHNSON MED STUDENT) Progress Note : Progress Note I have seen and evaluated the patient and agree with above except as indicated. I have directed the plan of care. Patient is here with right lower quadrant abdominal pain that started acutely this morning. Denies dysuria or diarrhea. Denies bowel or bladder changes. Denies vaginal discharge. On physical exam, heart is regular in rate and rhythm without murmurs and lungs are clear to auscultation bilateral. Abdomen is soft but tender in the far right lower quadrant. No obvious mass or rebound. IV, labs, UA, Zofran 4 mg IV, fentanyl 50 g IV and Toradol 15 mg IV ordered. Monitor patient. CT abdomen pelvis ordered as UA was negative. Monitor patient. 0940: CT results noted and discussed with the patient. She is feeling better. This may be related to ruptured ovarian cyst as serious no significant findings. I did discuss this with the patient. She will follow-up with her materials planning analyst. Does have history of endometriosis as well and this could be related to that. She has had several months of intermittent abdominal pain and some pain with sexual activity. I did discuss with her at length regarding need to follow-up with ENT and materials planning analyst as well as consideration for neurologist due to her history of seizures as discussed on her previous visit. Discharged home with return precautions. Patient verbalize un derstanding instructions and agreement with plan. (LONG GUZMÁN MD) Diagnostic Imaging Diagonstic Imaging: CT Plain Films/CT/US/NM/MRI: abdomen, pelvis Comments [facility]. [place], [place] NAME: RICHA TORREZ [facility] REC#: [id number] PT STATUS: REG ER : 1980 PHYSICIAN: LONG GUZMÁN MD ADMIT DATE: 05/09/19/ER Draft Date of Exam:05/09/19 CT ABD/PELV W (APPENDICITIS) PROCEDURE: CT abdomen and pelvis with contrast, rule out appendicitis. TECHNIQUE: Multiple contiguous axial images were obtained through the abdomen and pelvis after the administration of intravenous contrast. INDICATION: Right lower quadrant abdominal pain. Evaluate for appendicitis. COMPARISON: None. FINDINGS: LOWER THORAX: Mild basilar subsegmental atelectasis. Visualized heart is normal in size. LIVER: Normal. GALLBLADDER: Normal CT appearance. BILE DUCTS: No biliary ductal dilatation. SPLEEN: Normal. PANCREAS: Normal. No pancreatic ductal dilatation. ADRENAL GLANDS: No nodules. RIGHT KIDNEY AND URETER: No hydronephrosis. Subcentimeter renal hypodensity, too small to characterize, but likely representing a cyst. No suspicious mass. No ureteral abnormality is demonstrated. LEFT KIDNEY AND URETER: No hydronephrosis. Normal renal enhancement. No suspicious mass. No ureteral abnormality is demonstrated. STOMACH AND BOWEL: Stomach is physiologically-distended. No bowel obstruction. No inflammatory changes. APPENDIX: Normal. PELVIC ORGANS/BLADDER: Bladder is normal. Uterus is absent. No pelvic mass. Trace free fluid is demonstrated in the cul-de-sac. PERITONEUM AND RETROPERITONEUM: No pneumoperitoneum. No abdominal free fluid or loculated collection. LYMPH NODES: No lymphadenopathy. VESSELS: Abdominal aorta is nonaneurysmal. No venous thrombosis. ABDOMINAL WALL: Unremarkable. BONES: No acute abnormality. IMPRESSION: There is trace free fluid in the pelvis, which is nonspecific and may be physiologic in nature. Otherwise, no acute abdominal or pelvic pathology is appreciated. The appendix is normal. No evidence of obstruction, pneumoperitoneum, or loculated fluid collection. Dictated on workstation # [id number] Dict: 05/09/19 0853 Trans: 05/09/19 09 [id number] Interpreted by: MJ LEDBETTER DO Electronically signed by: (LONG GUZMÁN MD) Departure Impression Primary Impression: Abdominal pain Qualified Codes: R10.31 - Right lower quadrant pain Disposition: 01 HOME, SELF-CARE Condition: Stable Departure-Patient Inst. Decision time for Depature: 09:43 (LONG GUZMÁN MD) Referrals: DIANA WALLACE MD (PCP) Primary Care Physician Patient Instructions: Acute Abdomen (Belly Pain), Adult (DC) Add. Discharge Instructions: All discharge instructions reviewed with patient and/or family. Voiced understanding. It is very important that you follow up with your materials planning analyst for recheck and further evaluation and to discuss possibility this may be related to endometriosis or ruptured ovarian cyst. Return for worse pain, fever, vomiting, weakness, breathing problems or other concerns as needed. You may take ibuprofen 2 or 3 qerv-mww-koxcmix tablets every 8 hours as needed for pain. You may take Tylenol/acetaminophen 1000 mg every 8 hours as needed for pain. Drink plenty of fluids. You should also follow up with your ear nose and throat doctor regarding the mastoid problems and discuss the pituitary concerns with your materials planning analyst to review your hormone labs again. Work/School Note: Local Medical Staff Listing, Work Release Form Date Seen in the Emergency Department: May 09, 2019 Return to Work: May 10, 2019 Restrictions: No Restrictions TWYLA JOHNSON MED STUDENT May 09, 2019 07:52 LONG GUZMÁN MD May 09, 2019 09:15
--- NOTE | 2019-05-09 07:56 | NUR ---
BLOOD DRAWN BY LAB UNABLE DRAW FROM IV . IV FLUSHED WITH OUT PROBLEM
[2019-05-09 08:04] LABS: BASOPHILS % (AUTO) 0 % (0-10); EOSINOPHILS # (AUTO) 0.1 10^3/uL (0.0-0.3); EOSINOPHILS % (AUTO) 2 % (0-10); HEMATOCRIT 38 % (35-52); HEMOGLOBIN 12.7 G/DL (11.5-16.0); LYMPHOCYTES # (AUTO) 1.7 X 10^3 (1.0-4.0); LYMPHOCYTES % (AUTO) 34 % (12-44); MEAN CORPUSCULAR HEMOGLOBIN 33 PG (25-34); MEAN CORPUSCULAR HGB CONC 34 G/DL (32-36); MEAN CORPUSCULAR VOLUME 96 FL (80-99); MEAN PLATELET VOLUME 9.6 FL (7.4-10.4); MONOCYTES # (AUTO) 0.4 X 10^3 (0.0-1.0); MONOCYTES % (AUTO) 9 % (0-12); NEUTROPHILS # (AUTO) 2.7 X 10^3 (1.8-7.8); NEUTROPHILS % (AUTO) 55 % (42-75); PLATELET COUNT 325 10^3/uL (130-400); RED CELL DISTRIBUTION WIDTH 12.3 % (10.0-14.5)
[2019-05-09 08:17] LABS: ALANINE AMINOTRANSFERASE 20 U/L (0-55); ALBUMIN 4.3 GM/DL (3.2-4.5); ALKALINE PHOSPHATASE 48 U/L (40-136); BILIRUBIN,TOTAL 0.8 MG/DL (0.1-1.0); BUN/CREATININE RATIO 14; CALCIUM 8.9 MG/DL (8.5-10.1); CARBON DIOXIDE 23 MMOL/L (21-32); CHLORIDE 108 MMOL/L (98-107); CREATININE SERUM 0.69 MG/DL (0.60-1.30); GFR ESTIMATED > 60; GLUCOSE 80 MG/DL (70-105); POTASSIUM 3.7 MMOL/L (3.6-5.0); SODIUM 140 MMOL/L (135-145); TOTAL PROTEIN 6.8 GM/DL (6.4-8.2)
[2019-05-09] MEDS ORDERED: IOHEXOL 350 MG/ML 100 ML (OMNIPAQUE 350) VIAL IV ONE (08:30)
[2019-05-09] MEDS ORDERED: NS 100 ML (IVPB) BAG IV ONE (08:30)
[2019-05-09] MEDS ORDERED: HOLD METFORMIN - RECEIVED CONTRAST 20 ML VIAL IV SCH (08:30)
--- NOTE | 2019-05-09 09:03 | Diagnostic Imaging Report ---
PROCEDURE: CT abdomen and pelvis with contrast, rule out appendicitis. TECHNIQUE: Multiple contiguous axial images were obtained through the abdomen and pelvis after the administration of intravenous contrast. INDICATION: Right lower quadrant abdominal pain. Evaluate for appendicitis. COMPARISON: None. FINDINGS: LOWER THORAX: Mild basilar subsegmental atelectasis. Visualized heart is normal in size. LIVER: Normal. GALLBLADDER: Normal CT appearance. BILE DUCTS: No biliary ductal dilatation. SPLEEN: Normal. PANCREAS: Normal. No pancreatic ductal dilatation. ADRENAL GLANDS: No nodules. RIGHT KIDNEY AND URETER: No hydronephrosis. Subcentimeter renal hypodensity, too small to characterize, but likely representing a cyst. No suspicious mass. No ureteral abnormality is demonstrated. LEFT KIDNEY AND URETER: No hydronephrosis. Normal renal enhancement. No suspicious mass. No ureteral abnormality is demonstrated. STOMACH AND BOWEL: Stomach is physiologically-distended. No bowel obstruction. No inflammatory changes. APPENDIX: Normal. PELVIC ORGANS/BLADDER: Bladder is normal. Uterus is absent. No pelvic mass. Trace free fluid is demonstrated in the cul-de-sac. PERITONEUM AND RETROPERITONEUM: No pneumoperitoneum. No abdominal free fluid or loculated collection. LYMPH NODES: No lymphadenopathy. VESSELS: Abdominal aorta is nonaneurysmal. No venous thrombosis. ABDOMINAL WALL: Unremarkable. BONES: No acute abnormality. IMPRESSION: There is trace free fluid in the pelvis, which is nonspecific and likely physiologic in nature. Otherwise, no acute abdominal or pelvic pathology is appreciated. The appendix is normal. No evidence of obstruction, pneumoperitoneum, or loculated fluid collection. Dictated by: Dictated on workstation # [id number]
[2019-05-09 09:52] VITALS: BP 114/80
== END 2019-05-09 09:50 | disposition home or self-care (01) ==
LOC: EDUNIT# 07:06 → ER 07:08
DX: R10.31 Right lower quadrant pain (principal); G40.909 Epilepsy, unspecified, not intractable, without status epilepticus; Z87.891 Personal history of nicotine dependence; Z90.710 Acquired absence of both cervix and uterus
CPT/HCPCS: 36415; 74177; 80053; 81000; 85025; 86141; 96361; 96374; 96375